=== PATIENT | female | born 1970 | race Caucasian/White ===

== ENCOUNTER 2016-11-27 10:50 | Emergency (ER) | payer BC ==
[2016-11-27 10:51] VITALS: BP 162/90; PULSE 100; RESP 20; TEMP 98.7; O2SAT 98
[2016-11-27] MEDS ORDERED: HYOS0.128 PO (11:12)
[2016-11-27] MEDS ORDERED: ESCI20TA PO (11:13)
[2016-11-27] MEDS ORDERED: SODIUM CHLORIDE 0.9% FLUSH 10 ML FLUSH IVF PRN (11:15)
[2016-11-27 11:16] VITALS: BP 188/96; PULSE 87; RESP 18; TEMP 98.6; O2SAT 98
--- NOTE | 2016-11-27 11:22 | PD ---
HPI Chief Complaint: Dizziness Time Seen by Provider: 11:09 Travel History International Travel<30 days: No Contact w/Intl Traveler<30days: No Traveled to known affect area: No History of Present Illness HPI Patient comes in complaining of intermittent dizziness ongoing for 2 months. Patient reports these episodes last approximately 10-15 seconds when they occur. Patient's when they do occur make her feel that she has visual disturbances and little bit off balance. Patient states that her symptoms improve with rest. Denies anything making it worse. Denies being evaluated for this previously. Denies any chest pain, fevers, nausea, vomiting, shortness of breath, back pain, loss or change in bowel or bladder, headache, or numbness or tingling anywhere. Patient states she feels like it's getting worse over the past 4 days. PFSH Past Medical History Depression: Yes Cardiovascular Problems: Yes (HTN) Hypertension: Yes Tetanus Vaccination: < 5 Years Influenza Vaccination: Yes ?: Not LMP: 11/2016 Past Surgical History Section: Yes Social History Alcohol Use: No Tobacco Use: No Substance Use: No Allergies-Medications (Allergen,Severity, Reaction): Coded Allergies: No Known Allergies (Unverified , 11/27/16) Reported Meds & Prescriptions Reported Meds & Active Scripts Active Reported Escitalopram (Escitalopram Oxalate) 20 Mg Tab 20 Mg PO DAILY Hyoscyamine (Hyoscyamine Sulfate) 0.125 Mg Tab 0.125 Mg PO BID Review of Systems Except as stated in HPI: all other systems reviewed are Neg Physical Exam Narrative GENERAL: Well-developed, overly nourished, in no acute distress, and non-ill appearing. SKIN: Focused skin assessment warm and dry. HEAD: Atraumatic. Normocephalic. EYES: Pupils equal and round. EOMI. No scleral icterus. No injection or drainage. ENT: No nasal bleeding or discharge. Mucous membranes pink and moist. Tympanic membranes pearly brennan bilaterally. NECK: Trachea midline. Supple. No nuclear rigidity. CARDIOVASCULAR: Regular rate and rhythm. No murmur appreciated. RESPIRATORY: No accessory muscle use. No respiratory distress. Clear to auscultation. Breath sounds equal bilaterally. MUSCULOSKELETAL: No obvious deformities. No clubbing. No cyanosis. No edema. Full range of motion. NEUROLOGICAL: Awake and alert. No obvious cranial nerve deficits. Motor grossly within normal limits. Normal speech. PSYCHIATRIC: Appropriate mood and affect; insight and judgment normal. Data Data Last Documented VS Vital Signs Date Time Temp Pulse Resp B/P (MAP) Pulse Ox O2 Delivery O2 Flow Rate FiO2 11/27/16 13:00 86 16 149/77 (101) 99 11/27/16 11:35 Room Air 11/27/16 11:16 98.6 Orders Orders Electrocardiogram (11/27/16 ) Electrocardiogram (11/27/16 11:14) Basic Metabolic Panel (Bmp) (11/27/16 11:14) Complete Blood Count With Diff (11/27/16 11:14) Magnesium (Mg) (11/27/16 11:14) Act Partial Throm Time (Ptt) (11/27/16 11:14) Prothrombin Time / Inr (Pt) (11/27/16 11:14) Urinalysis - C+S If Indicated (11/27/16 11:14) Ct Brain W/O Iv Contrast(Rout) (11/27/16 11:14) Ecg Monitoring (11/27/16 11:14) Iv Access Insert/Monitor (11/27/16 11:14) Oximetry (11/27/16 11:14) Sodium Chloride 0.9% Flush (Ns Flush) (11/27/16 11:15) Orthostatic Vital Signs (11/27/16 11:14) Labs Laboratory Tests Test 11/27/16 11:20 White Blood Count 9.0 TH/MM3 Red Blood Count 5.24 MIL/MM3 Hemoglobin 16.2 GM/DL Hematocrit 46.6 % Mean Corpuscular Volume 88.9 FL Mean Corpuscular Hemoglobin 30.9 PG Mean Corpuscular Hemoglobin Concent 34.7 % Red Cell Distribution Width 13.4 % Platelet Count 263 TH/MM3 Mean Platelet Volume 7.3 FL Neutrophils (%) (Auto) 66.3 % Lymphocytes (%) (Auto) 27.7 % Monocytes (%) (Auto) 4.7 % Eosinophils (%) (Auto) 0.8 % Basophils (%) (Auto) 0.5 % Neutrophils # (Auto) 5.9 TH/MM3 Lymphocytes # (Auto) 2.5 TH/MM3 Monocytes # (Auto) 0.4 TH/MM3 Eosinophils # (Auto) 0.1 TH/MM3 Basophils # (Auto) 0.0 TH/MM3 CBC Comment DIFF FINAL Differential Comment Prothrombin Time 10.5 SEC Prothromb Time International Ratio 1.0 RATIO Activated Partial Thromboplast Time 26.2 SEC Urine Color YELLOW Urine Turbidity HAZY Urine pH 5.0 Urine Specific [place] 1.027 Urine Protein TRACE mg/dL Urine Glucose (UA) NEG mg/dL Urine Ketones NEG mg/dL Urine Occult Blood SMALL Urine Nitrite NEG Urine Bilirubin NEG Urine Urobilinogen LESS THAN 2.0 MG/DL Urine Leukocyte Esterase NEG Urine RBC 2 /hpf Urine WBC 4 /hpf Urine Squamous Epithelial Cells 3 /hpf Urine Bacteria FEW /hpf Urine Hyaline Casts 1 /lpf Urine Granular Casts 1 /lpf Urine Mucus FEW /lpf Microscopic Urinalysis Comment CULT NOT INDICATED Blood Urea Nitrogen 12 MG/DL Creatinine 0.84 MG/DL Random Glucose 141 MG/DL Calcium Level 9.5 MG/DL Magnesium Level 2.2 MG/DL Sodium Level 138 MEQ/L Potassium Level 3.9 MEQ/L Chloride Level 103 MEQ/L Carbon Dioxide Level 26.1 MEQ/L Anion Gap 9 MEQ/L Estimat Glomerular Filtration Rate 73 ML/MIN [facility] Medical Decision Making Medical Screen Exam Complete: Yes Emergency Medical Condition: Yes Interpretation(s) EKG reviewed by Dr. Mattson shows sinus rhythm with ventricular rate of 92. No STEMI. CT of the head read by the radiologist shows: Normal examination for a patient of this age. Differential Diagnosis Arrhythmia, electrolyte abnormality, UTI, mass, vertigo, dehydration, orthostatic hypotension, dizziness, other Narrative Course Patient presented with dizziness ongoing intermittently for 2 months. The patient denied any symptoms of chest pain, SOB/difficulty breathing, palpitations or skipped heartbeats. The patient denied and headache. The patient denied any bloody or tarry stools. The patient has no significant risk factors and no significant co-morbidities. There was no evidence to suggest neurologic or cardiac etiology or GIB. The diagnosis and findings were discussed with the patient and the patient was instructed to follow up with their primary physician. Patient with asymptomatic hematuria. No obvious evidence of infection. This finding was discussed with the patient and the patient was instructed to follow up with her primary care provider to recheck urine and possible urology referral to rule out etiologies such as cancer. Patient agreed with plan. Patient in no obvious distress upon re-evaluation. All pertinent laboratory/ Radiology result(s) discussed with patient. Discussed patient with Dr. Mattson prior to discharge, who is in agreement with a plan of care and disposition. Any questions/concerns in reference to patient diagnosis/ condition discussed and clarified prior to patient's discharge. Reinforced sheer importance of close follow up with patient's primary physician or primary care clinic and ENT. Instructed patient to return to ED immediately, if symptoms return/worsen. Pt showed understanding of above instructions. Further instructions and recommendations were detailed in discharge paperwork. Pt ambulated without difficulty out of ED at discharge. Diagnosis Primary Impression: Dizziness Additional Impression: Hematuria Qualified Codes: R31.21 - Asymptomatic microscopic hematuria Patient Instructions: Dizziness (ED), General Instructions, Hematuria (ED) Additional Instructions: Follow-up with your primary care physician this week for reevaluation and recheck of blood noted in her urine today. Follow up with ENT in 4-7 days for reevaluation. Drink plenty of non-caffeinated and nonalcoholic fluids. Return to the emergency department if symptoms get worse. Disposition: 01 DISCHARGE HOME Condition: Stable Geraldo Francis Nov 27, 2016 11:22
[2016-11-27 11:35] VITALS: O2SAT 100
[2016-11-27 11:39] VITALS: BP_SYST 146; BP_SYST 151; BP_DIAS 78; BP_DIAS 79; BP_DIAS 83; RESP 16; RESP 17; RESP 19
[2016-11-27 11:40] LABS: AUTOMATED NEUTROPHIL # 5.9 TH/MM3 (1.8-7.7); BASOPHIL % 0.5 % (0.0-2.0); EOSINOPHIL # 0.1 TH/MM3 (0-0.4); EOSINOPHIL % 0.8 % (0.0-4.0); HEMATOCRIT 46.6 % (35.0-46.0); HEMO FLAGS DIFF FINAL; LYMPH % 27.7 % (9.0-44.0); LYMPHOCYTE # 2.5 TH/MM3 (1.0-4.8); MEAN CELL VOLUME 88.9 FL (80.0-100.0); MEAN CORPUSCULAR HEMOGLOBIN 30.9 PG (27.0-34.0); MEAN CORPUSCULAR HGB CONC 34.7 % (32.0-36.0); MONO % 4.7 % (0.0-8.0); NEUT % 66.3 % (16.0-70.0); PLATELET COUNT 263 TH/MM3 (150-450); RED BLOOD COUNT 5.24 MIL/MM3 (4.00-5.30); RED CELL DISTRIBUTION WIDTH 13.4 % (11.6-17.2)
[2016-11-27 11:47] LABS: BACTERIA, URINE FEW /hpf; BLOOD, URINE SMALL (NEG); GLUCOSE,URINE NEG (NEG); GRANULAR CAST, URINE 1 /lpf; HYALINE CAST, URINE 1 /lpf (RARE); KETONE, URINE NEG (NEG); MUCUS URINE FEW /lpf (OCC); NITRITE,URINE NEG (NEG); SQUAMOUS EPITHELIAL CELL URINE 3 /hpf (0-5); URINE COLOR YELLOW (YELLW/STRAW)
[2016-11-27 11:48] LABS: COMMENT (UR) CULT NOT INDICATED; CULTURE IF INDICATED CULT NOT INDICATED
[2016-11-27 11:57] LABS: APTT (PATIENT) 26.2 SEC (24.3-30.1); PROTHROMBIN TIME - PATIENT 10.5 SEC (9.8-11.6)
[2016-11-27 12:01] LABS: BICARBONATE 26.1 MEQ/L (21.0-32.0); MAGNESIUM 2.2 MG/DL (1.5-2.5); POTASSIUM 3.9 MEQ/L (3.5-5.1)
--- NOTE | 2016-11-27 12:06 | RADRPT ---
EXAM DATE/TIME: 11/27/2016 11:55 [facility] COMPARISON: No previous studies available for comparison. INDICATIONS : Dizziness, visual disturbance RADIATION DOSE: 33.43 CTDIvol (mGy) MEDICAL HISTORY : Cardiovascular disease. Hypertension. SURGICAL HISTORY : None. ENCOUNTER: Initial ACUITY: 1 month PAIN SCALE: 0/10 LOCATION: cranial TECHNIQUE: Multiple contiguous axial images were obtained of the head. Using automated exposure control and adj ustment of the mA and/or kV according to patient size, radiation dose was kept as low as reasonably a chievable to obtain optimal diagnostic quality images. DICOM format image data is available electro nically for review and comparison. FINDINGS: CEREBRUM: The ventricles are normal for age. No evidence of midline shift, mass lesion, hemorrhage or acute in farction. No extra-axial fluid collections are seen. POSTERIOR FOSSA: The cerebellum and brainstem are intact. The 4th ventricle is midline. The cerebellopontine angle i s unremarkable. EXTRACRANIAL: The visualized portion of the orbits is intact. SKULL: The calvaria is intact. No evidence of skull fracture. CONCLUSION: Normal examination for a patient of this age. John Noonan MD on November 27, 2016 at 12:04 Board Certified Radiologist. This report was verified electronically.
[2016-11-27 13:00] VITALS: BP 149/77
--- NOTE | 2016-11-28 15:09 | EKG ---
Date Performed: 11/27/2016 Time Performed: 11:16:29 PTAGE: 46 years EKG: Sinus rhythm NORMAL ECG NO PREVIOUS TRACING DOCTOR: Jono Wise Interpretating Date/Time 11/28/2016 15:06:40
== END 2016-11-27 13:01 | disposition home or self-care (01) ==
LOC: NEPE 10:50
DX: R42 Dizziness and giddiness (principal); R31.21 Asymptomatic microscopic hematuria; I10 Essential (primary) hypertension; F32.9 Major depressive disorder, single episode, unspecified
CPT/HCPCS: 70450; 80048; 81001; 83735; 85025; 85610; 85730; 93005; 99284